=== PATIENT | female | born 1995 | race Caucasian/White ===

== ENCOUNTER 2017-02-04 12:44 | Day surgery (SDC) | payer BC ==
[~2017-02-04 12:44] MED LIST: Lactated Ringers 1,000 ML IV SCH
--- NOTE | 2017-02-04 13:29 | PCM.HPR ---
H & P Addendum review - H & P Addendum Review Date of Original H & P: 01/22/17 Date Reviewed: 02/04/17 Patient was examined: No Changes (ok to proceed with lap joseph)
[2017-02-04] MEDS ORDERED: Propofol 200 MG/20 ML SDV IV ONE (13:45)
[2017-02-04] MEDS ORDERED: Lidocaine 2% 100 MG/5 ML Syringe IVPUSH ONE (13:45)
[2017-02-04] MEDS ORDERED: Dexamethasone 4 MG/ML 5 ML MDV IVPUSH ONE (13:45)
[2017-02-04] MEDS ORDERED: Ondansetron 4 MG/2 ML SDV IVPUSH ONE (13:45)
[2017-02-04] MEDS ORDERED: fentaNYL 100 MCG/2 ML SDV IV ONE (13:45)
[2017-02-04] MEDS ORDERED: Neostigmine Methylsulfate 1 MG/ML 5 ML Syringe IV ONE (13:45)
[2017-02-04] MEDS ORDERED: Ketorolac 30 MG/ML SDV IVPUSH ONE (13:45)
[2017-02-04] MEDS ORDERED: Midazolam 1 MG/ML 2 ML SDV IV ONE (13:45)
[2017-02-04] MEDS ORDERED: Rocuronium 50 MG/5 ML Vial IV ONE (13:45)
[2017-02-04] MEDS ORDERED: Lactated Ringers 1,000 ML IV ONE (13:45)
--- NOTE | 2017-02-04 14:34 | PCM.OPNOTE ---
- General Post-Op/Procedure Note Date of Surgery/Procedure: 02/04/17 Operative Procedure(s): Lap Eva Pre Op Diagnosis: Chronic Cholecystitis Post-Op Diagnosis: Same Anesthesia Technique: General ET tube Primary Surgeon: Ellis Lopez Anesthesia Provider: Wendy Olson Pathology: Gallbladder EBL in mLs: 2 Complications: None Condition: Good
[2017-02-04] MEDS ORDERED: Acetaminophen/HYDROcodone 325-5 MG Tab PO PRN (15:09)
[2017-02-04 17:06] VITALS: BP 120/68
--- NOTE | 2017-02-04 21:10 | OR ---
DATE OF OPERATION: 02/04/2017 SURGEON: Ellis Lopez MD PREOPERATIVE DIAGNOSIS: Chronic cholecystitis. POSTOPERATIVE DIAGNOSIS: Chronic cholecystitis. PROCEDURE: Laparoscopic cholecystectomy. ANESTHESIA: General. NARRATIVE: The patient was brought to the operating room, where general endotracheal anesthesia was administered. The abdomen was prepped with ChloraPrep and draped sterilely. An infraumbilical incision was made and extended into the peritoneal cavity without difficulty. The Jessica cannulator was introduced and a pneumoperitoneum obtained. The remaining three 5-mm ports were placed in the usual positions. General exploration revealed the surface of the liver, stomach, omentum, bowel, and peritoneal surfaces to be normal. The gallbladder was grasped and retracted cephalad. The cystic artery and cystic duct were clearly dissected free. Minimal oozing occurred during the dissection. The cystic artery was doubly clipped proximally and once distally and then transected. The anatomy of the cystic duct was reconfirmed and could be seen entering the gallbladder and extending towards the common bile duct. This was doubly clipped proximally and once distally and then transected. The gallbladder was then removed from the bed of the liver without difficulty. No bile leakage occurred. The gallbladder was brought out through the umbilical incision. The right upper quadrant was irrigated and inspected, return was clear, and hemostasis was assured. Ports were removed under direct vision and remained hemostatic. The umbilical fascia was closed with [id number] #0 Vicryl. The skin was closed with #4-0 Vicryl subcuticular sutures. Benzoin and Steri-Strips were placed and Band-Aids applied. The patient tolerated the procedure well. Estimated blood loss is 2 mL. Patient returned to postanesthesia in stable condition. /[id number] DEANN/ELIZABETH
== END 2017-02-04 17:40 | disposition home or self-care (01) ==
LOC: FB.SDS 12:44 → FB.MS 15:30 → FB.SDS 17:40
PROVIDERS: ATTEND Surgery
PROC: 0FT44ZZ Resection of Gallbladder, Percutaneous Endoscopic Approach (ICD-10-PCS; principal; 2017-02-04)
DX: K81.1 Chronic cholecystitis (principal); F41.9 Anxiety disorder, unspecified; F32.9 Major depressive disorder, single episode, unspecified; Z79.899 Other long term (current) drug therapy
CPT/HCPCS: 47562; 81025; 88304; A9270; J1100; J1885; J2250; J2405; J2704; J3010; J7120